=== PATIENT | female | born 1980 ===

== ENCOUNTER 2025-06-02 16:03 | Outpatient (CLI) | payer MEDICAID | END 2025-06-02 17:00 | disposition home or self-care (01) | LOC: Rad HDHVI 16:03 | PROVIDERS: ATTEND Internal Medicine Cardiovascular Disease | DX: I08.8 Other rheumatic multiple valve diseases (principal); R06.02 Shortness of breath | CPT/HCPCS: 93306 ==

== ENCOUNTER 2025-06-04 14:28 | Outpatient (CLI) | payer MEDICAID ==
[~2025-06-04] VITALS: Ht 170.2 cm; Wt 114.3 kg
--- NOTE | 2025-06-13 13:27 | DVHSR ---
APPROVED REPORT Exam: Nuclear Stress Test Indication: Dyspnea Ht: 5 ft 7 in Wt: 252 lbs BSA: 2.23 m2 HR: 73 bpm BP: 163/108 mmHg BMI: 39.46 Rhythm: NSR Medical History Medical History: HTN, Edema, Smoking, SOB Medications: Entresto, Bumex, Potassium Stress Test Details Stress Test: Exercise stress testing was performed using a Asim protocol. HR Resting HR: 86 bpm Max Heart Rate (APMHR): 174.247128 bpm Max HR Achieved: 155 bpm Target HR (85% APMHR): 147.283261 bpm % of APMHR: 89.08 Recovery HR: 83 bpm HR response to stress: Normal HR response to stress BP Resting BP: 163/108 mmHg Max BP: 220/120 mmHg Recovery BP: 160/110 mmHg BP response to stress: resting hypertension- exaggerated response ECG Resting ECG: Sinus Rhythm Stress ECG: Sinus Tachycardia Arrhythmia: PACs Recovery ECG: Sinus Rhythm Clinical Reason for Termination: target HR achieved, exaggerated BP Stress Symptoms: dyspnea Exercise duration: 5 min 15 sec Exercise capacity: 7.00 METs Dyspnea resolved during recovery. Nurse Comments Hypertensive upon arrival, 185/115, Clonidine 0.1 mg given prior to test. Stress ECG Conclusion NON ISCHEMIC CLINICAL RESPONSE NON ISCHEMIC ECG RESPONSE NON ISCHEMIC CARDIOLITE PERFUSION SCAN EF <35% NM EXAM: Myocardial Perfusion REST/STRESS Imaging Protocol: Rest Tc-99m/Stress Tc-99m 1 day Resting Data Rest SPECT myocardial perfusion imaging was performed in supine position 30 minutes following the intravenous injection of 10.94 mCi of Tc-99m Sestamibi. Time of rest injection: 1443 Date: 06/04/2025 Time of rest imagin Date: 06/04/2025 Administration Route: IV Administration Site: Right AC Exercise Stress At peak stress, the patient was injected intravenously with 32.6 mCi of Tc-99m Sestamibi. Time of stress injection: 164 Date: 06/04/2025 Time of stress imagin Date: 06/04/2025 Administration Route: IV Administration Site: Right AC Heart Rate at time of stress injection: 151 bpm. Patient continued to exercise for 1 minute(s). Gated Stress SPECT was performed 15 minutes after stress injection. The images were gated to evaluate regional wall motion and calculate left ventricular ejection fraction. Comments Cardiolite injection at 4 minutes, 12 seconds into test. Nuclear Conclusion ECG Findings: negative for ischemia Clinical Findings: negative for ischemia Nuclear Findings: negative for ischemia Left Ventricular Function: abnormal NON ISCHEMIC CLINICAL RESPONSE NON ISCHEMIC ECG RESPONSE NON ISCHEMIC CARDIOLITE PERFUSION SCAN EF <35%
== END 2025-06-04 17:00 | disposition home or self-care (01) ==
LOC: Rad HDHVI 14:28
PROVIDERS: ATTEND Internal Medicine Cardiovascular Disease
DX: I49.1 Atrial premature depolarization (principal); R00.0 Tachycardia, unspecified; R06.00 Dyspnea, unspecified; I10 Essential (primary) hypertension; R06.02 Shortness of breath; R60.9 Edema, unspecified; F17.210 Nicotine dependence, cigarettes, uncomplicated
CPT/HCPCS: 78452; 93017; A9500; 96374

== ENCOUNTER → 2025-06-06 | Outpatient (CLI) | payer MEDICAID ==
[2025-06-06 16:31] LABS: Hematocrit 47.5 % (36.0-46.0); Hemoglobin 15.9 g/dL (12.2-16.2); Mean Corpuscular Hemoglobin 28.5 pg (28.0-32.0); Mean Corpuscular Volume 85.1 fL (80.0-100.0); Nucleated Red Blood Cells % 0.1 %
[2025-06-06 16:36] LABS: Alanine Aminotransferase 20 U/L (7-40); Albumin 4.3 g/dL (3.2-4.8); Alkaline Phosphatase 81 U/L (46-116); Anion Gap 7 (5-15); BUN/Creatinine Ratio 9.9 (10.0-20.0); Blood Urea Nitrogen 17 mg/dL (9-23); Calcium 9.7 mg/dL (8.7-10.4); Carbon Dioxide 31 mmol/L (20-31); Chloride 102 mmol/L (98-107); Potassium 4.8 mmol/L (3.5-5.1); Sodium 140 mmol/L (136-145); Total Protein 7.4 g/dL (5.7-8.2)
[2025-06-06 16:39] LABS: Bilirubin, Total 0.3 mg/dL (0.2-1.0); Follicle Stimulating Hormone 37.43 IU/L (SEE BELOW); Glucose 111 mg/dL (74-106)
== END | disposition home or self-care (01) ==
LOC: LAB 15:49
PROVIDERS: ATTEND Obstetrics & Gynecology
DX: N95.0 Postmenopausal bleeding (principal); Z79.899 Other long term (current) drug therapy
CPT/HCPCS: 36415; 80053; 82670; 83001; 83002; 84403; 84443; 85025